=== PATIENT | female | born 1990 | race Caucasian/White ===

== ENCOUNTER 2023-07-29 02:44 | Inpatient (IN) | payer OTHER, SELFPAY ==
[2023-07-29 02:47] VITALS: BMI 30.1
[2023-07-29] MEDS: LR 1000 IV ×2 (03:15→05:57)
[2023-07-29 03:19] VITALS: BP 123/72
[2023-07-29 03:23] LABS: % Basophils 0.2 % (0-2); % Eosinophils 0.3 % (0-6); % Immature Granulocytes 0.7 % (0-0.5); % Lymphocytes 31.7 % (20.5-51.1); % Monocytes 6.1 % (1.7-9.3); Absolute Immature Granulocytes 0.1 10^3/uL (0-0.05); Absolute Lymphocytes 3.7 10^3/uL (1.2-3.4); Absolute Monocytes 0.7 10^3/uL (0.1-0.6); Absolute Neutrophils 7.2 10^3/uL (1.4-6.5); Hematocrit 35.8 % (37.0-47.0); Hemoglobin 12.5 g/dL (12.0-16.0); Mean Corp Hgb Conc. 34.9 g/dL (33.0-37.0); Mean Corpuscular Hgb 32.3 pg (27.0-31.0); Mean Corpuscular Volume 92.5 fL (81.0-99.0); Mean Platelet Volume 9.7 fL (7.4-10.4); Nucleated Red Blood Cells % 0 %; Platelet Count 188 10^3/uL (130-400); Red Blood Cell Count 3.87 10^6/uL (4.20-5.40); Red Cell Dist. Width 13.1 % (11.5-14.5); White Blood Cell Count 11.8 10^3/uL (4.8-10.8)
[2023-07-29] MEDS: FENTANYL/BUPIVACAINE 100 EPIDURAL (05:29)
[2023-07-29] MEDS: SUBLIMAZE 100 MCG EPIDURAL (05:40)
[2023-07-29] MEDS: METHERGINE INJECTION 0.200000000000000011 MG IM (07:20)
[2023-07-29] MEDS: ZOFRAN 4 MG IV (09:07)
[2023-07-29] MEDS: MOTRIN 600 MG PO ×2 (16:19→22:11)
[2023-07-29] MEDS: PRENATAL PLUS 1 TABLET PO (22:11)
[2023-07-30 05:52] LABS: Hematocrit 32.9 % (37.0-47.0)
[2023-07-30] MEDS: SENOKOT-S 1 TABLET PO (11:58)
[2023-07-30] MEDS: MOTRIN 600 MG PO ×2 (11:58→23:32)
[2023-07-30] MEDS: PRENATAL PLUS 1 TABLET PO (23:32)
[2023-07-31] MEDS: MOTRIN 600 MG PO (09:04)
[2023-07-31] MEDS: SENOKOT-S 1 TABLET PO (09:05)
[2023-07-31 16:40] LABS: Syphilis/T. pallidum Ab Reflex Negative (Negative)
== END 2023-07-31 11:23 | disposition home or self-care (01) | DRG 807 ==
LOC: LDRP 02:44
PROVIDERS: Obstetrics & Gynecology; ADMITTING PHYSICIAN Obstetrics & Gynecology; FAMILY PHYSICIAN Internal Medicine
PROC: 0HQ9XZZ Repair Perineum Skin, External Approach (ICD-10-PCS; 2023-07-29)
PROC: 10E0XZZ Delivery of Products of Conception, External Approach (ICD-10-PCS; 2023-07-29)
DX: O42.02 Full-term premature rupture of membranes, onset of labor within 24 hours of rupture (principal); Z37.0 Single live birth; Z3A.39 39 weeks gestation of pregnancy; O70.0 First degree perineal laceration during delivery; O32.6XX0 Maternal care for compound presentation, not applicable or unspecified; O69.82X0 Labor and delivery complicated by other cord entanglement, without compression, not applicable or unspecified; Z88.1 Allergy status to other antibiotic agents; Z88.0 Allergy status to penicillin; Z86.16 Personal history of COVID-19; Z28.310 Unvaccinated for COVID-19; Z87.440 Personal history of urinary (tract) infections; J45.990 Exercise induced bronchospasm
CPT/HCPCS: 85014; 85018; 85025; 86780; 86850; 86900; 86901